=== PATIENT | male | born 1950 | race Native Hawaiian/Other Pacific Islander ===

== ENCOUNTER 2020-05-14 05:45 | Emergency (ER) | payer BC, OTHER ==
[~2020-05-14] VITALS: Ht 182.9 cm; Wt 111.1 kg
[2020-05-14 06:48] LABS: POTASSIUM 4.4 mmol/L (3.6-5.2)
[2020-05-14 06:52] LABS: PLATELET COUNT 113 K/uL (142-355)
[2020-05-14] MEDS ORDERED: PEPCID40 MG PO (19:26)
[2020-05-14] MEDS ORDERED: MELATONIN10 M2 PO (19:26)
[2020-05-14] MEDS ORDERED: ZINC220C4 PO (19:27)
[2020-05-14] MEDS ORDERED: THIA100T8 PO (19:27)
[2020-05-14] MEDS ORDERED: VITAMIN C1000 MG PO (19:28)
[2020-05-14] MEDS ORDERED: VITAMIN D35000 UNIT PO (19:28)
[2020-05-14] MEDS ORDERED: AMLODIPINE BESYLATE PO (19:29)
[2020-05-14] MEDS ORDERED: DEXAMETHASON1 MG PO (19:30)
[2020-05-14] MEDS ORDERED: INSU100I2 SC (19:31)
[2020-05-14] MEDS ORDERED: FURO20TA67 PO (19:31)
[2020-05-14 20:45] VITALS: BP 144/54
== END 2020-05-14 20:45 | disposition short-term general hospital (02) ==
LOC: ED 06:04
PROVIDERS: Emergency Medicine
DX: I50.9 Heart failure, unspecified (principal); W06.XXXA Fall from bed, initial encounter; Y92.89 Other specified places as the place of occurrence of the external cause
CPT/HCPCS: 80053; 83605; 83880; 85027; 87040; 96372; 99285; J0696

== ENCOUNTER 2020-07-10 11:02 | Outpatient (CLI) | payer OTHER, BC ==
[~2020-07-10 11:02] MED LIST: AMLODIPINE BESYLATE PO; DEXAMETHASON1 MG PO; FURO20TA67 PO; INSU100I2 SC; MELATONIN10 M2 PO; PEPCID40 MG PO; THIA100T8 PO; VITAMIN C1000 MG PO; VITAMIN D35000 UNIT PO; ZINC220C4 PO
[2020-07-10 11:51] LABS: PLATELET COUNT 173 K/uL (142-355)
[2020-07-10 12:03] LABS: POTASSIUM 3.4 mmol/L (3.6-5.2)
== END 2020-07-10 23:25 | disposition home or self-care (01) ==
LOC: EDBD 11:02 → LAB 11:02
PROVIDERS: Internal Medicine Infectious Disease
DX: M86.18 Other acute osteomyelitis, other site (principal)
CPT/HCPCS: 80053; 85027; 85651; 86140

== ENCOUNTER 2020-07-17 14:01 | Outpatient (CLI) | payer OTHER, BC ==
[2020-07-17 14:28] LABS: POTASSIUM 3.4 mmol/L (3.6-5.2)
[2020-07-17 14:48] LABS: PLATELET COUNT 219 K/uL (142-355)
== END 2020-07-17 19:11 | disposition home or self-care (01) ==
LOC: LAB 14:01
PROVIDERS: Internal Medicine Infectious Disease
DX: M86.171 Other acute osteomyelitis, right ankle and foot (principal)
CPT/HCPCS: 80053; 85027; 85651; 86140

== ENCOUNTER 2020-07-24 12:12 | Outpatient (CLI) | payer OTHER, BC ==
[2020-07-24 12:24] LABS: PLATELET COUNT 201 K/uL (142-355)
[2020-07-24 12:36] LABS: POTASSIUM 2.8 mmol/L (3.6-5.2)
== END 2020-07-24 23:20 | disposition home or self-care (01) ==
LOC: LAB 12:12
PROVIDERS: ATTEND Internal Medicine Infectious Disease
DX: M86.171 Other acute osteomyelitis, right ankle and foot (principal); M86.172 Other acute osteomyelitis, left ankle and foot
CPT/HCPCS: 80053; 85027; 85651; 86140

== ENCOUNTER 2020-09-18 15:32 | Outpatient (CLI) | payer BC ==
[2020-09-18 16:00] LABS: POTASSIUM 4.1 mmol/L (3.6-5.2)
[2020-09-18 16:23] LABS: PLATELET COUNT 183 K/uL (142-355)
== END 2020-09-18 20:51 | disposition home or self-care (01) ==
LOC: LAB 15:32
PROVIDERS: ATTEND Internal Medicine
DX: L89.629 Pressure ulcer of left heel, unspecified stage (principal); L89.619 Pressure ulcer of right heel, unspecified stage
CPT/HCPCS: 80053; 85027

== ENCOUNTER 2020-09-20 07:58 | Outpatient (CLI) | payer BC ==
[~2020-09-20] VITALS: Ht 182.9 cm; Wt 113.4 kg
[2020-09-20 08:00] VITALS: BP 184/72; TEMP 98.5
== END 2020-09-20 16:39 | disposition home or self-care (01) ==
LOC: INF 07:58
PROVIDERS: ATTEND Internal Medicine Endocrinology, Diabetes & Metabolism
PROC: 30233N1 Transfusion of Nonautologous Red Blood Cells into Peripheral Vein, Percutaneous Approach (ICD-10-PCS; principal; 2020-09-20)
DX: D64.9 Anemia, unspecified (principal)
CPT/HCPCS: 36430; 36591; 85014; 85018; 86850; 86900; 86901; 86922; P9016

== ENCOUNTER 2020-09-22 13:37 | Outpatient (CLI) | payer BC ==
[2020-09-22 14:07] LABS: PLATELET COUNT 181 K/uL (142-355)
[2020-09-22 14:09] LABS: POTASSIUM 4.1 mmol/L (3.6-5.2)
== END 2020-09-22 23:59 | disposition home or self-care (01) ==
LOC: LAB 13:37
PROVIDERS: ATTEND Emergency Medicine Undersea and Hyperbaric Medicine
DX: L08.89 Other specified local infections of the skin and subcutaneous tissue (principal); B95.61 Methicillin susceptible Staphylococcus aureus infection as the cause of diseases classified elsewhere
CPT/HCPCS: 80053; 80200; 85027; 85652; 86140

== ENCOUNTER 2020-09-25 14:14 | Outpatient (CLI) | payer BC ==
[2020-09-25 14:48] LABS: PLATELET COUNT 153 K/uL (142-355)
[2020-09-25 15:15] LABS: POTASSIUM 4.6 mmol/L (3.6-5.2)
== END 2020-09-25 19:26 | disposition home or self-care (01) ==
LOC: LAB 14:14
PROVIDERS: ATTEND Emergency Medicine Undersea and Hyperbaric Medicine
DX: M86.171 Other acute osteomyelitis, right ankle and foot (principal); L08.89 Other specified local infections of the skin and subcutaneous tissue; B95.61 Methicillin susceptible Staphylococcus aureus infection as the cause of diseases classified elsewhere
CPT/HCPCS: 80053; 80200; 85027; 85652

== ENCOUNTER 2020-11-13 14:17 | Outpatient (CLI) | payer BC ==
[2020-11-13 14:54] LABS: PLATELET COUNT 191 K/uL (142-355)
[2020-11-13 15:41] LABS: POTASSIUM 4.2 mmol/L (3.6-5.2)
== END 2020-11-13 19:27 | disposition home or self-care (01) ==
LOC: LAB 14:17
PROVIDERS: ATTEND Nurse Practitioner Family
DX: L89.629 Pressure ulcer of left heel, unspecified stage (principal); L89.619 Pressure ulcer of right heel, unspecified stage
CPT/HCPCS: 36415; 80053; 85027

== ENCOUNTER 2020-11-20 17:32 | Outpatient (CLI) | payer BC | END 2020-11-20 22:19 | disposition home or self-care (01) | LOC: LAB 17:32 | PROVIDERS: ATTEND Urology | DX: Z12.5 Encounter for screening for malignant neoplasm of prostate (principal) | CPT/HCPCS: 84153 ==

== ENCOUNTER 2020-11-30 09:53 | Outpatient (CLI) | payer BC ==
[2020-11-30 10:17] LABS: POTASSIUM 4.3 mmol/L (3.6-5.2)
[2020-11-30 10:26] LABS: PLATELET COUNT 193 K/uL (142-355)
== END 2020-11-30 19:32 | disposition home or self-care (01) ==
LOC: LAB 09:53
PROVIDERS: ATTEND Internal Medicine
DX: M86.171 Other acute osteomyelitis, right ankle and foot (principal); E11.621 Type 2 diabetes mellitus with foot ulcer; I31.0 Chronic adhesive pericarditis; R60.9 Edema, unspecified; I10 Essential (primary) hypertension; E78.49 Other hyperlipidemia; R53.83 Other fatigue
CPT/HCPCS: 80053; 85027

== ENCOUNTER 2020-12-25 16:54 | Outpatient (CLI) | payer BC ==
[2020-12-25 17:51] LABS: PLATELET COUNT 162 K/uL (142-355)
[2020-12-25 18:05] LABS: POTASSIUM 4.2 mmol/L (3.6-5.2)
== END 2020-12-25 19:57 | disposition home or self-care (01) ==
LOC: LAB 16:54
PROVIDERS: ATTEND Internal Medicine
DX: I10 Essential (primary) hypertension (principal)
CPT/HCPCS: 36415; 80053; 85027

== ENCOUNTER 2021-01-22 14:55 | Outpatient (CLI) | payer BC ==
[2021-01-22 15:19] LABS: POTASSIUM 4.4 mmol/L (3.6-5.2)
[2021-01-22 15:23] LABS: PLATELET COUNT 172 K/uL (142-355)
== END 2021-01-22 19:56 | disposition home or self-care (01) ==
LOC: LAB 14:55
PROVIDERS: ATTEND Internal Medicine
DX: E11.69 Type 2 diabetes mellitus with other specified complication (principal); M86.171 Other acute osteomyelitis, right ankle and foot; M86.172 Other acute osteomyelitis, left ankle and foot; E11.621 Type 2 diabetes mellitus with foot ulcer; L97.512 Non-pressure chronic ulcer of other part of right foot with fat layer exposed; L97.526 Non-pressure chronic ulcer of other part of left foot with bone involvement without evidence of necrosis; I25.10 Atherosclerotic heart disease of native coronary artery without angina pectoris; I50.31 Acute diastolic (congestive) heart failure
CPT/HCPCS: 80053; 85027

== ENCOUNTER 2021-02-19 15:18 | Outpatient (CLI) | payer BC ==
[2021-02-19 15:51] LABS: PLATELET COUNT 146 K/uL (142-355)
[2021-02-19 16:15] LABS: POTASSIUM 4.1 mmol/L (3.6-5.2)
== END 2021-02-19 20:06 | disposition home or self-care (01) ==
LOC: LAB 15:18
PROVIDERS: ATTEND Internal Medicine
DX: L97.512 Non-pressure chronic ulcer of other part of right foot with fat layer exposed (principal); L89.624 Pressure ulcer of left heel, stage 4; E11.621 Type 2 diabetes mellitus with foot ulcer
CPT/HCPCS: 80053; 85027

== ENCOUNTER 2021-03-29 14:44 | Outpatient (CLI) | payer BC ==
[2021-03-29 15:30] LABS: PLATELET COUNT 154 K/uL (142-355)
[2021-03-29 15:43] LABS: POTASSIUM 5.2 mmol/L (3.6-5.2)
== END 2021-03-29 21:08 | disposition home or self-care (01) ==
LOC: LAB 14:44
PROVIDERS: ATTEND Nurse Practitioner Family
DX: R60.9 Edema, unspecified (principal); I10 Essential (primary) hypertension; E78.49 Other hyperlipidemia; R53.83 Other fatigue
CPT/HCPCS: 80053; 85027

== ENCOUNTER 2021-04-23 11:05 | Outpatient (CLI) | payer BC ==
[2021-04-23 11:42] LABS: PLATELET COUNT 119 K/uL (142-355)
[2021-04-23 11:52] LABS: POTASSIUM 5.7 mmol/L (3.6-5.2)
== END 2021-04-23 19:10 | disposition home or self-care (01) ==
LOC: LAB 11:05
PROVIDERS: ATTEND Internal Medicine
DX: R60.0 Localized edema (principal); I10 Essential (primary) hypertension; E78.49 Other hyperlipidemia; R53.83 Other fatigue; E11.610 Type 2 diabetes mellitus with diabetic neuropathic arthropathy
CPT/HCPCS: 80053; 85027

== ENCOUNTER 2021-05-21 12:39 | Outpatient (CLI) | payer BC | END 2021-05-21 22:24 | disposition home or self-care (01) | LOC: LAB 12:39 | PROVIDERS: ATTEND Internal Medicine | DX: R82.998 Other abnormal findings in urine (principal) | CPT/HCPCS: 81000; 87077; 87086; 87088; 87186 ==

== ENCOUNTER 2021-05-28 12:25 | Outpatient (CLI) | payer BC ==
[2021-05-28 13:00] LABS: POTASSIUM 5.2 mmol/L (3.6-5.2)
[2021-05-28 13:06] LABS: PLATELET COUNT 130 K/uL (142-355)
== END 2021-05-28 20:15 | disposition home or self-care (01) ==
LOC: LAB 12:25
PROVIDERS: ATTEND Internal Medicine
DX: E11.610 Type 2 diabetes mellitus with diabetic neuropathic arthropathy (principal); I13.0 Hypertensive heart and chronic kidney disease with heart failure and stage 1 through stage 4 chronic kidney disease, or unspecified chronic kidney disease; N18.4 Chronic kidney disease, stage 4 (severe); I50.21 Acute systolic (congestive) heart failure
CPT/HCPCS: 80053; 85027

== ENCOUNTER 2021-06-25 13:20 | Outpatient (CLI) | payer BC ==
[2021-06-25 13:39] LABS: PLATELET COUNT 80 K/uL (142-355)
[2021-06-25 14:59] LABS: POTASSIUM 6.1 mmol/L (3.6-5.2)
== END 2021-06-25 20:08 | disposition home or self-care (01) ==
LOC: LAB 13:20
PROVIDERS: ATTEND Internal Medicine
DX: L89.624 Pressure ulcer of left heel, stage 4 (principal); E11.610 Type 2 diabetes mellitus with diabetic neuropathic arthropathy; I13.0 Hypertensive heart and chronic kidney disease with heart failure and stage 1 through stage 4 chronic kidney disease, or unspecified chronic kidney disease; N18.4 Chronic kidney disease, stage 4 (severe); Z79.4 Long term (current) use of insulin; I50.9 Heart failure, unspecified
CPT/HCPCS: 80053; 85027

== ENCOUNTER 2021-07-23 11:37 | Outpatient (CLI) | payer BC ==
[2021-07-23 12:41] LABS: PLATELET COUNT 127 K/uL (142-355)
[2021-07-23 13:01] LABS: POTASSIUM 5.6 mmol/L (3.6-5.2)
== END 2021-07-23 21:49 | disposition home or self-care (01) ==
LOC: LAB 11:37
PROVIDERS: ATTEND Internal Medicine
DX: E11.69 Type 2 diabetes mellitus with other specified complication (principal); D64.89 Other specified anemias; I13.0 Hypertensive heart and chronic kidney disease with heart failure and stage 1 through stage 4 chronic kidney disease, or unspecified chronic kidney disease; I50.9 Heart failure, unspecified; N18.4 Chronic kidney disease, stage 4 (severe)
CPT/HCPCS: 80053; 83036; 85027